=== PATIENT | female | born 1975 | race Two or more races ===

== ENCOUNTER 2023-07-24 06:49 | Day surgery (SDC) | payer MEDICAID ==
[~2023-07-24] VITALS: Ht 170.2 cm; Wt 56.3 kg
[~2023-07-24 06:49] MED LIST: PANT-47 PO
[2023-07-24] MEDS ORDERED: CHOL100046 PO (07:06)
[2023-07-24] MEDS ORDERED: FERR324T4 PO (07:06)
[2023-07-24 07:14] VITALS: BP 103/69; PULSE 44; RESP 12
[2023-07-24] MEDS ORDERED: fentaNYL/PF 50MCG/1 ML 2ML syringe ONE (08:15)
[2023-07-24] MEDS ORDERED: LIDOcaine 2% Viscous 15ml cup ONE (08:16)
[2023-07-24] MEDS ORDERED: MIDAZolam 1 MG/ML 5ML VIAL ONE (08:16)
[2023-07-24 09:06] VITALS: BP 91/58; PULSE 48; RESP 12; O2SAT 97
[2023-07-24 09:16] VITALS: BP 98/70; PULSE 49; RESP 11; O2SAT 100
[2023-07-24 09:26] VITALS: BP 106/72; PULSE 45; RESP 14; O2SAT 100
[2023-07-24 09:34] VITALS: BP 100/77; PULSE 47; RESP 14; O2SAT 100
== END 2023-07-24 09:50 | disposition home or self-care (01) ==
LOC: GI LAB 06:49
PROVIDERS: ATTEND Internal Medicine Gastroenterology
DX: R19.7 Diarrhea, unspecified (principal); D50.9 Iron deficiency anemia, unspecified; R63.4 Abnormal weight loss; K20.90 Esophagitis, unspecified without bleeding; K29.70 Gastritis, unspecified, without bleeding; Z98.84 Bariatric surgery status; Z68.1 Body mass index [BMI] 19.9 or less, adult
CPT/HCPCS: 44361; 45380; J2250; J3010; J7030; Z7512; 43239; 99152; A4620